=== PATIENT | female | born 1960 | race Caucasian/White ===

== ENCOUNTER 2019-04-14 22:44 | Emergency (ER) | payer OTHER, SELFPAY ==
[2019-04-14 23:25] LABS: APPEARANCE,URINE Clear (CLEAR); BILIRUBIN,URINE Negative (NEGATIVE); COLOR,URINE Yellow (YELLOW); GLUCOSE, URINE (UA) Negative (NEGATIVE); KETONES,URINE Trace mg/dL (NEGATIVE); LEUKOCYTE ESTERASE ,URINE Small (NEGATIVE); NITRATE,URINE Negative (NEGATIVE); OCCULT BLOOD,URINE Trace (NEGATIVE); PROTEIN,URINE POS 1+ mg/dL (NEGATIVE)
[2019-04-14 23:29] LABS: BASOPHILS % (AUTO) 0.3 % (0.0-5.0); EOSINOPHILS % (AUTO) 0.9 % (0.0-8.0); HEMATOCRIT 42.2 % (36-48); LYMPHOCYTES % (AUTO) 22.7 % (21.0-51.0); MEAN CORPUSCULAR HEMOGLOBIN 30.5 pg (27.0-33.0); MEAN CORPUSCULAR HGB CONC 32.9 g/dL (32.0-36.0); MEAN CORPUSCULAR VOLUME 92.7 fL (79-99); MONOCYTES % (AUTO) 6.6 % (3.0-13.0); NEUTROPHILS % (AUTO) 69.3 % (40.0-77.0); PLATELET COUNT (AUTO) 232 K/uL (130-400); RED BLOOD CELL COUNT(AUTO) 4.55 MIL/uL (4.00-5.50); WHITE BLOOD COUNT (AUTO) 6.5 K/uL (4.8-10.8)
[2019-04-14 23:38] LABS: CREATININE 0.9 mg/dL (0.5-1.5); POTASSIUM 3.6 mmol/L (3.5-5.1)
[2019-04-14 23:42] LABS: ALBUMIN 3.8 g/dL (3.5-5.0); BILIRUBIN,TOTAL 0.5 mg/dL (0.2-1.0); TOTAL PROTEIN, SERUM 8.1 g/dL (6.0-8.3)
[2019-04-14 23:50] LABS: INR 0.95 (0.85-1.15); PARTIAL THROMBOPLASTIN TIME 26.8 SEC (26.3-35.5)
[2019-04-14 23:59] LABS: WBC,URINE 0-1 /HPF (0-1)
[2019-04-15] LABS: BACTERIA,URINE Moderate /HPF (None Seen)
== END 2019-04-15 01:49 | disposition home or self-care (01) ==
LOC: EDH 22:44
DX: R59.9 Enlarged lymph nodes, unspecified (principal); R91.8 Other nonspecific abnormal finding of lung field; F41.9 Anxiety disorder, unspecified
CPT/HCPCS: 36415; 71045; 71250; 74176; 76536; 80053; 81001; 82150; 83690; 85025; 85610; 85730

== ENCOUNTER → 2019-04-21 | Outpatient (CLI) | payer OTHER ==
[2019-04-21 09:40] LABS: INR 0.98 (0.85-1.15); PARTIAL THROMBOPLASTIN TIME 27.4 SEC (26.3-35.5); PROTHROMBIN TIME 10.3 SEC (9.6-11.6)
--- NOTE | 2019-04-21 10:45 | NUR ---
US GUIDED BIOPSY LEFT SUPRACLAVICULAR MASS PROCEDURE PERFORMED BY DR. BUTLER. PUNCTURE SITE LEFT SIDE OF NECK. PATIENT TOLERATED PROCEDURE WELL. SPECIMEN X 7 COLLECTED. SENT TO LAB. END OF PROCEDURE AT 1055. BIOPSY NEEDLE REMOVED AND DRESSING APPLIED. NO BLEEDING NOTED. DISCHARGE INSTRUCTIONS GIVEN TO PATIENT AND VERBALIZED UNDERSTANDING. DISCHARGED AMBULATORY @ 1125. AAO X 3. NO C/O PAIN.
== END ==
LOC: RAH 08:54
PROVIDERS: ATTEND Family Medicine
DX: R22.1 Localized swelling, mass and lump, neck (principal); C79.2 Secondary malignant neoplasm of skin; C34.90 Malignant neoplasm of unspecified part of unspecified bronchus or lung; Z79.01 Long term (current) use of anticoagulants
CPT/HCPCS: 20206; 36415; 76942; 85610; 85730; 88305; A4215

== ENCOUNTER 2019-06-15 08:03 | Day surgery (SDC) | payer OTHER ==
[~2019-06-15] VITALS: Ht 162.6 cm; Wt 53.4 kg
[2019-06-15] VITALS (9 sets, daily range): BP systolic 82–105; BP diastolic 35–49
[2019-06-15] MEDS ORDERED: SODIUM CHLORIDE 0.9% 1000ML 1,000 ML IV ONE ×2 (08:23→11:17)
--- NOTE | 2019-06-15 08:30 | NUR ---
PREOP PT ARRIVED AMBULATORY IN NO DISTRESS. PT MADE COMFORTABLE IN ROOM, CALL LIGHT WITH IN REACH AND BED IN LOWEST POSITION. PT HERE FOR PORT PLACEMENT. PT HAS VEIN TRACKING TO LEFT ARM DUE TO CHEMO INFUSION. PT ALSO HAS A SMALL BRUISE TO LEFT ARM. LEFT BREATH SOUNDS COARSE TO LEFT LOWER LOBE.
[2019-06-15 08:37] LABS: BASOPHILS % (AUTO) 0.4 % (0.0-5.0); EOSINOPHILS % (AUTO) 0.7 % (0.0-8.0); HEMATOCRIT 37.3 % (36-48); LYMPHOCYTES % (AUTO) 26.5 % (21.0-51.0); MEAN CORPUSCULAR HEMOGLOBIN 29.8 pg (27.0-33.0); MEAN CORPUSCULAR HGB CONC 32.4 g/dL (32.0-36.0); MEAN CORPUSCULAR VOLUME 91.9 fL (79-99); MONOCYTES % (AUTO) 0.9 % (3.0-13.0); NEUTROPHILS % (AUTO) 71.3 % (40.0-77.0); PLATELET COUNT (AUTO) 469 K/uL (130-400); RED BLOOD CELL COUNT(AUTO) 4.06 MIL/uL (4.00-5.50); RED CELL DISTRIBUTION WIDTH 14.1 % (11.0-15.5); WHITE BLOOD COUNT (AUTO) 4.5 K/uL (4.8-10.8)
[2019-06-15 08:55] LABS: INR 0.92 (0.85-1.15); PARTIAL THROMBOPLASTIN TIME 25.2 SEC (26.3-35.5)
--- NOTE | 2019-06-15 09:23 | NUR ---
notification called dr holman and reported low b/p. ok to give one liter of ns wide open before procedure. pt informed and ns left wide open
[2019-06-15 09:25] LABS: EOSINOPHILS % (MANUAL) 1 % (1-6); LYMPHOCYTES % (MANUAL) 22 % (22-44); MAN.DIFF COMMENT-IMPRESSION MANUAL DIFFERENTIAL; MONOCYTES % (MANUAL) 1 % (2-9); PLATELET MORPHOLOGY COMMENT SLIGHT INCREASED; REACTIVE LYMPHOCYTES 1 % (0-0); SEGMENTED NEUTROPHILS % 75 % (40-70)
--- NOTE | 2019-06-15 10:35 | NUR ---
HYDRATION NS STILL INFUSING WELL. PT SLEEPING COMFORTABLY. WILL CONTINUE TO MONITOR PT.
--- NOTE | 2019-06-15 11:15 | NUR ---
hydration liter of ns infused. pt tolerated it well and in no distress. pt assisted to restroom and back.
--- NOTE | 2019-06-15 11:42 | NUR ---
FOLLOW UP MARIO GONZALEZ RN DIRECTOR FOR LITHOGRAPHIC ARTIST REPORTED PT WILL BE TAKEN AT NOON PLANNED. PT AWARE AND IN NO DISTRESS
[2019-06-15] MEDS ORDERED: LIDOCAINE 1%-EPI 1:100,000 20 ML VIAL IJ ONE (11:53)
[2019-06-15] MEDS ORDERED: FENTANYL CITRATE PF 50 MCG/1 ML 2ML VIAL ONE (11:53)
[2019-06-15] MEDS ORDERED: LIDOCAINE HCL 1% MDV 50ML VIAL ONE (11:53)
[2019-06-15] MEDS ORDERED: MIDAZOLAM HCL 1 MG/ML 2ML VIAL ONE (11:53)
--- NOTE | 2019-06-15 12:00 | NUR ---
TRANSFER PT TAKEN TO WATER [employer]AXI OPERATOR VIA BED IN NO DISTRESS BY PAM PRESLEY RN
[2019-06-15] MEDS ORDERED: CEFAZOLIN SODIUM 1 GM VIAL ONE (12:46)
[2019-06-15] MEDS ORDERED: OCTYL 2-CYANOACRYLATE 1 EACH TP ONE (12:53)
--- NOTE | 2019-06-15 13:18 | NUR ---
REPORT RECEIVED REPORT FROM PAM PRESLEY RN POST PORTACATH PLACEMENT. MAY MAY BE DISCHARGED IN ONE HOUR IF STABLE PER MD.
--- NOTE | 2019-06-15 13:25 | NUR ---
POST PROCEDURE PT ARRIVED VIA STRETCHER IN NO DISTRESS. PT A/O X3, DRESSING TO RT CHEST WALL X2 GAUZES CLEAN AND DRY. CALL LIGHT WITH IN REACH AND BED IN LOWEST POSITION. WILL CONTINUE TO MONITOR
--- NOTE | 2019-06-15 14:30 | NUR ---
DISCHARGE PT TAKEN OUT VIA W/C BY MARIANN Noel RN. PT IN NO DISTRESS. SPOUSE HERE FOR PT AND DISCHARGE INSTRUCTIONS GIVEN TO HIM TOO. HE VOICED UNDERSTANDING
== END 2019-06-15 14:30 | disposition home or self-care (01) ==
LOC: DAH 08:03 → CLH 08:03
PROVIDERS: ATTEND Internal Medicine Hematology & Oncology
DX: Z51.11 Encounter for antineoplastic chemotherapy (principal); C34.32 Malignant neoplasm of lower lobe, left bronchus or lung; C78.7 Secondary malignant neoplasm of liver and intrahepatic bile duct; E78.2 Mixed hyperlipidemia; F41.9 Anxiety disorder, unspecified; Z79.01 Long term (current) use of anticoagulants
CPT/HCPCS: 36415; 36561; 77001; 85025; 85610; 85730; A4215; A4216; A4221; A4222; A4223 ×3; A4606; A4663; C1788; C1894; J0690; J1644 ×2; J2250; J3010; J3490 ×2; J7030 ×2; 96365; 96366; 99156; 99157

== ENCOUNTER 2019-12-12 09:00 | Emergency (ER) | payer OTHER ==
[2019-12-12] MEDS ORDERED: IOHEXOL 350 MG/ML 100ML INFUS..BTL IV ONE (09:45)
[2019-12-12 09:52] LABS: BASOPHILS % (AUTO) 0.5 % (0.0-5.0); EOSINOPHILS % (AUTO) 0.9 % (0.0-8.0); LYMPHOCYTES % (AUTO) 20.8 % (21.0-51.0); MEAN CORPUSCULAR HEMOGLOBIN 34.8 pg (27.0-33.0); MEAN CORPUSCULAR HGB CONC 32.7 g/dL (32.0-36.0); MEAN CORPUSCULAR VOLUME 106.3 fL (79-99); MONOCYTES % (AUTO) 8.7 % (3.0-13.0); NEUTROPHILS % (AUTO) 68.9 % (40.0-77.0); PLATELET COUNT (AUTO) 237 K/uL (130-400); RED BLOOD CELL COUNT(AUTO) 3.48 MIL/uL (4.00-5.50); RED CELL DISTRIBUTION WIDTH 13.1 % (11.0-15.5); WHITE BLOOD COUNT (AUTO) 4.4 K/uL (4.8-10.8)
[2019-12-12 10:00] LABS: CREATININE 1.2 mg/dL (0.5-1.5); POTASSIUM 3.9 mmol/L (3.5-5.1)
[2019-12-12 10:04] LABS: INR 0.97 (0.85-1.15); PARTIAL THROMBOPLASTIN TIME 26.3 SEC (26.3-35.5); PROTHROMBIN TIME 10.5 SEC (9.6-11.6)
[2019-12-12 10:05] LABS: ALBUMIN 4.2 g/dL (3.5-5.0); BILIRUBIN,TOTAL 0.4 mg/dL (0.2-1.0); TOTAL PROTEIN, SERUM 8.4 g/dL (6.0-8.3)
[2019-12-12 10:36] LABS: APPEARANCE,URINE Clear (CLEAR); BILIRUBIN,URINE Negative (NEGATIVE); COLOR,URINE Yellow (YELLOW); GLUCOSE, URINE (UA) Negative (NEGATIVE); KETONES,URINE Negative (NEGATIVE); LEUKOCYTE ESTERASE ,URINE Negative (NEGATIVE); NITRATE,URINE Negative (NEGATIVE); OCCULT BLOOD,URINE Negative (NEGATIVE); PROTEIN,URINE Negative (NEGATIVE); UROBILINOGEN,URINE 0.2 mg/dL (0.2-1.0)
[2019-12-12] MEDS ORDERED: SODIUM CHLORIDE 0.9% 1000ML 1,000 ML IV ONE (11:42)
[2019-12-12] MEDS ORDERED: AZITHROMYCIN 250 MG TABLET PO ONE (11:43)
== END 2019-12-12 12:17 | disposition home or self-care (01) ==
LOC: EDH 09:00
DX: J20.8 Acute bronchitis due to other specified organisms (principal); R06.00 Dyspnea, unspecified; Z20.828 Contact with and (suspected) exposure to other viral communicable diseases; C34.90 Malignant neoplasm of unspecified part of unspecified bronchus or lung; F41.9 Anxiety disorder, unspecified; Z87.891 Personal history of nicotine dependence; Z85.05 Personal history of malignant neoplasm of liver
CPT/HCPCS: 36415; 71275; 80053; 81003; 83605; 84145; 84484; 85025; 85610; 85730; 87040 ×2; 87077; 87088; 87186; 87426; 93005; 96360; 96361; 99285; J7030; Q9967; U0003

== ENCOUNTER 2020-02-18 08:39 | Emergency (ER) | payer OTHER ==
[2020-02-18] MEDS ORDERED: SOLU-MEDROL 125MG VIAL ONE (09:05)
[2020-02-18] MEDS ORDERED: IPRATROPIUM/ALBUTEROL SULFATE 3 ML SOLUTION IH ONE ×2 (09:15→10:11)
== END 2020-02-18 10:33 | disposition home or self-care (01) ==
LOC: EDH 08:39
DX: J44.1 Chronic obstructive pulmonary disease with (acute) exacerbation (principal); F41.9 Anxiety disorder, unspecified; E03.9 Hypothyroidism, unspecified
CPT/HCPCS: 71046; 94640; 96374; 99284; J2930

== ENCOUNTER → 2020-03-21 | Outpatient (CLI) | payer OTHER ==
[2020-03-21 12:29] LABS: BASOPHILS % (AUTO) 0.5 % (0.0-5.0); EOSINOPHILS % (AUTO) 1.1 % (0.0-8.0); MEAN CORPUSCULAR HEMOGLOBIN 30.8 pg (27.0-33.0); MEAN CORPUSCULAR HGB CONC 32.4 g/dL (32.0-36.0); MEAN CORPUSCULAR VOLUME 95.1 fL (79-99); MONOCYTES % (AUTO) 5.2 % (3.0-13.0); NEUTROPHILS % (AUTO) 82.8 % (40.0-77.0); PLATELET COUNT (AUTO) 359 K/uL (130-400); RED BLOOD CELL COUNT(AUTO) 3.89 MIL/uL (4.00-5.50); RED CELL DISTRIBUTION WIDTH 14.6 % (11.0-15.5); WHITE BLOOD COUNT (AUTO) 7.9 K/uL (4.8-10.8)
[2020-03-21 12:49] LABS: ALBUMIN 2.7 g/dL (3.5-5.0); BILIRUBIN,TOTAL 0.5 mg/dL (0.2-1.0); CREATININE 1.2 mg/dL (0.5-1.5); CRP QUANTITATIVE 61.8 mg/L (0.00-9.0); POTASSIUM 4.5 mmol/L (3.5-5.1); TOTAL PROTEIN, SERUM 7.4 g/dL (6.0-8.3)
[2020-03-21 14:11] LABS: ERYTHROCYTE SEDIMENTATION RATE 95 MM/HR (0-30)
== END | disposition home or self-care (01) ==
LOC: LAB 11:21
PROVIDERS: ATTEND Family Medicine
DX: J90 Pleural effusion, not elsewhere classified (principal); R78.81 Bacteremia; R00.0 Tachycardia, unspecified
CPT/HCPCS: 36415; 80053; 85025; 85651; 86038; 86140; 86215; 86235; 86431; 87040

== ENCOUNTER → 2020-04-06 | Outpatient (CLI) | payer OTHER ==
[~2020-04-06] MED LIST: ALBU0.63 IH; ALBU18HF7 IH; ASCO500T20 PO; CLON1TAB12 PO; FLUT1BLS3 IH; FOLI1 PO; FURO20TA6 PO; LEVO112C4 PO; MELA10TA2 PO; METO10TA41 PO; METO25TA6 PO; MV-M1TAB20 PO; OPDIVO; VITA40TA PO; YERVOY; [UNRECOGNIZED DRUG - OTHER]
== END | disposition home or self-care (01) ==
LOC: CANPRESDC → DAH 10:00 → EDSTATUS 04-13 07:35
PROVIDERS: ATTEND Internal Medicine Gastroenterology
DX: R13.10 Dysphagia, unspecified (principal); Z20.822 Contact with and (suspected) exposure to COVID-19
CPT/HCPCS: C9803; U0003

== ENCOUNTER 2020-04-10 12:01 | Inpatient (IN) | payer OTHER ==
[~2020-04-10] VITALS: Ht 162.6 cm; Wt 52.6 kg
[2020-04-10 12:30] LABS: BASOPHILS % (AUTO) 0.4 % (0.0-5.0); EOSINOPHILS % (AUTO) 1.4 % (0.0-8.0); HEMATOCRIT 39.5 % (36-48); LYMPHOCYTES % (AUTO) 7.3 % (21.0-51.0); MEAN CORPUSCULAR HEMOGLOBIN 30.1 pg (27.0-33.0); MEAN CORPUSCULAR HGB CONC 32.4 g/dL (32.0-36.0); MEAN CORPUSCULAR VOLUME 92.9 fL (79-99); MONOCYTES % (AUTO) 5.4 % (3.0-13.0); NEUTROPHILS % (AUTO) 84.7 % (40.0-77.0); PLATELET COUNT (AUTO) 369 K/uL (130-400); RED BLOOD CELL COUNT(AUTO) 4.25 MIL/uL (4.00-5.50); RED CELL DISTRIBUTION WIDTH 14.8 % (11.0-15.5); WHITE BLOOD COUNT (AUTO) 11.5 K/uL (4.8-10.8)
[2020-04-10 12:44] LABS: INR 1.03 (0.85-1.15); PROTHROMBIN TIME 11.2 SEC (9.6-11.6)
[2020-04-10 12:45] LABS: PARTIAL THROMBOPLASTIN TIME 20.9 SEC (26.3-35.5)
[2020-04-10 12:51] LABS: CREATININE 0.9 mg/dL (0.5-1.5)
[2020-04-10 12:55] LABS: ALBUMIN 2.9 g/dL (3.5-5.0); BILIRUBIN,TOTAL 0.4 mg/dL (0.2-1.0)
[2020-04-10] MEDS ORDERED: 0.9%NACL 1000ML 1,000 ML IV SCH (14:15)
[2020-04-10] MEDS ORDERED: 0.9%NACL 1000ML 1,000 ML IV ONE (17:40)
[2020-04-10] MEDS: IPRATROPIUM/ALBUTEROL SULFATE 3 ML SOLUTION IH SCH ×5 (18:00→22:10)
[2020-04-10] MEDS ORDERED: BUDESONIDE 0.5 MG/2 ML INH IH ONE (18:24)
[2020-04-10] MEDS ORDERED: IBUPROFEN 100 MG/5 ML SUSP UDCUP ONE (18:35)
[2020-04-10 20:00] VITALS: BP 123/43
[2020-04-10] MEDS: BUDESONIDE 0.25 MG/2 ML INH IH SCH (20:02)
[2020-04-10] MEDS ORDERED: VITA40TA PO (22:00)
[2020-04-10] MEDS ORDERED: MELA10TA2 PO (22:00)
[2020-04-10] MEDS ORDERED: METO10TA41 PO (22:00)
[2020-04-10] MEDS ORDERED: ALBU18HF7 IH (22:00)
[2020-04-10] MEDS ORDERED: FOLI1 PO (22:00)
[2020-04-10] MEDS ORDERED: METO25TA6 PO (22:00)
[2020-04-10] MEDS ORDERED: FLUT1BLS3 IH (22:00)
[2020-04-10] MEDS ORDERED: LEVO112C4 PO (22:00)
[2020-04-10] MEDS ORDERED: ALBU0.63 IH (22:00)
[2020-04-10] MEDS ORDERED: ASCO500T20 PO (22:00)
[2020-04-10] MEDS ORDERED: YERVOY (22:00)
[2020-04-10] MEDS ORDERED: FURO20TA6 PO (22:00)
[2020-04-10] MEDS ORDERED: OPDIVO (22:00)
[2020-04-10] MEDS ORDERED: MV-M1TAB20 PO (22:00)
[2020-04-10] MEDS ORDERED: CLON1TAB12 PO (22:00)
[2020-04-10] MEDS ORDERED: [UNRECOGNIZED DRUG - OTHER] (22:00)
[2020-04-11] VITALS: BP 118/66
[2020-04-11] MEDS: IPRATROPIUM/ALBUTEROL SULFATE 3 ML SOLUTION IH SCH ×8 (02:00→22:03)
[2020-04-11 04:00] VITALS: BP 108/66
[2020-04-11] MEDS: BUDESONIDE 0.25 MG/2 ML INH IH SCH ×2 (06:00→18:45)
[2020-04-11] MEDS: METOCLOPRAMIDE 10 MG TABLET PO SCH ×4 (07:30→22:25)
[2020-04-11 07:57] VITALS: BP 108/64
[2020-04-11] MEDS: CLONAZEPAM 1MG TAB PO SCH ×2 (09:00→22:25)
[2020-04-11] MEDS ORDERED: VITAMIN K2 40 MCG PO SCH (09:00)
[2020-04-11] MEDS: FOLIC ACID 1 MG TABLET PO SCH (09:00)
[2020-04-11] MEDS: METOPROLOL TARTRATE 25 MG TAB PO SCH (09:00)
[2020-04-11] MEDS: ASCORBIC ACID 500 MG TAB PO SCH (09:00)
[2020-04-11] MEDS ORDERED: NON-FORMULARY MEDICATION 1 EACH (Mv-Mn/Iron/FA/Herbal Cmplx#190 (Vitamin D3 Complete Caple PO SCH (09:00)
[2020-04-11] MEDS ORDERED: NON-FORMULARY MEDICATION 1 EACH (Levothyroxine Sodium (Levothyroxine) 112 MCG) PO SCH (09:00)
[2020-04-11 11:21] VITALS: BP 100/69
[2020-04-11] MEDS ORDERED: MORPHINE 2 MG SYG ONE (12:56)
[2020-04-11 16:10] VITALS: BP 106/68
[2020-04-11] MEDS ORDERED: MELATONIN 20 MG PO SCH (21:00)
[2020-04-11] MEDS: MELATONIN 20MG PO SCH (22:26)
[2020-04-11] MEDS: ONDANSETRON 4MG INJ IVP PRN (23:49)
[2020-04-11] MEDS: MORPHINE 2 MG SYG IVP PRN (23:51)
[2020-04-12] VITALS (21 sets, daily range): BP systolic 82–101; BP diastolic 36–77
[2020-04-12] MEDS: METOCLOPRAMIDE 10 MG TABLET PO SCH ×4 (07:30→23:15)
[2020-04-12] MEDS: LEVOTHYROXINE 112 MCG TABLET PO SCH (07:38)
[2020-04-12] MEDS: IPRATROPIUM/ALBUTEROL SULFATE 3 ML SOLUTION IH SCH ×3 (07:54→22:31)
[2020-04-12] MEDS: MV MN PO SCH (09:00)
[2020-04-12] MEDS: IRON PO SCH (09:00)
[2020-04-12] MEDS: [UNRECOGNIZED DRUG - OTHER] PO SCH (09:00)
[2020-04-12] MEDS: HERBAL CMPLX PO SCH (09:00)
[2020-04-12] MEDS: VITAMIN K2 40 MCG PO SCH (09:00)
[2020-04-12] MEDS: METOPROLOL TARTRATE 25 MG TAB PO SCH (09:00)
[2020-04-12] MEDS ORDERED: SUCCINYLCHOLINE 200MG/10ML SYR ONE (09:34)
[2020-04-12] MEDS ORDERED: PROPOFOL 10 MG/ML 20ML VIAL IV ONE ×2 (09:34)
[2020-04-12] MEDS ORDERED: LIDOCAINE HCL 1% 20 ML VIAL ONE (09:34)
[2020-04-12] MEDS: FOLIC ACID 1 MG TABLET PO SCH (11:32)
[2020-04-12] MEDS: CLONAZEPAM 1MG TAB PO SCH ×2 (11:32→23:15)
[2020-04-12] MEDS: ASCORBIC ACID 500 MG TAB PO SCH (11:32)
[2020-04-12] MEDS: MORPHINE 2 MG SYG IVP PRN (11:33)
[2020-04-12] MEDS: BALSAM PERU/CASTOR OIL 60 GM TUBE TP SCH ×2 (17:41→23:15)
[2020-04-12] MEDS: BUDESONIDE 0.25 MG/2 ML INH IH SCH (18:00)
[2020-04-12] MEDS: MELATONIN 20MG PO SCH (21:00)
[2020-04-13] MEDS: IPRATROPIUM/ALBUTEROL SULFATE 3 ML SOLUTION IH SCH ×5 (02:36→22:28)
[2020-04-13 04:23] VITALS: BP 97/55
[2020-04-13] MEDS: LEVOTHYROXINE 112 MCG TABLET PO SCH (06:15)
[2020-04-13] MEDS: BUDESONIDE 0.25 MG/2 ML INH IH SCH ×2 (06:47→19:18)
[2020-04-13 07:30] VITALS: BP 94/32
[2020-04-13 07:37] LABS: HEMATOCRIT 33.4 % (36-48); MEAN CORPUSCULAR HEMOGLOBIN 29.4 pg (27.0-33.0); MEAN CORPUSCULAR HGB CONC 31.4 g/dL (32.0-36.0); MEAN CORPUSCULAR VOLUME 93.6 fL (79-99); PLATELET COUNT (AUTO) 327 K/uL (130-400); RED BLOOD CELL COUNT(AUTO) 3.57 MIL/uL (4.00-5.50); RED CELL DISTRIBUTION WIDTH 15.2 % (11.0-15.5); WHITE BLOOD COUNT (AUTO) 10.8 K/uL (4.8-10.8)
[2020-04-13 07:54] LABS: ALBUMIN 2.5 g/dL (3.5-5.0); BILIRUBIN,TOTAL 0.5 mg/dL (0.2-1.0); CREATININE 0.8 mg/dL (0.5-1.5); POTASSIUM 3.4 mmol/L (3.5-5.1); TOTAL PROTEIN, SERUM 6.6 g/dL (6.0-8.3)
[2020-04-13] MEDS: FOLIC ACID 1 MG TABLET PO SCH (08:08)
[2020-04-13] MEDS: METOCLOPRAMIDE 10 MG TABLET PO SCH ×4 (08:08→22:49)
[2020-04-13] MEDS: CLONAZEPAM 1MG TAB PO SCH ×2 (08:08→22:49)
[2020-04-13] MEDS: ASCORBIC ACID 500 MG TAB PO SCH (08:08)
[2020-04-13 08:11] LABS: EOSINOPHILS % (MANUAL) 1 % (1-6); LYMPHOCYTES % (MANUAL) 5 % (22-44); MONOCYTES % (MANUAL) 5 % (2-9); SEGMENTED NEUTROPHILS % 89 % (40-70)
[2020-04-13 08:12] LABS: MAN.DIFF COMMENT-IMPRESSION MANUAL DIFFERENTIAL; PLATELET MORPHOLOGY COMMENT ADEQUATE
[2020-04-13] MEDS: HERBAL CMPLX PO SCH (08:13)
[2020-04-13] MEDS: MV MN PO SCH (08:13)
[2020-04-13] MEDS: [UNRECOGNIZED DRUG - OTHER] PO SCH (08:13)
[2020-04-13] MEDS: IRON PO SCH (08:13)
[2020-04-13] MEDS: VITAMIN K2 40 MCG PO SCH (08:13)
[2020-04-13] MEDS: METOPROLOL TARTRATE 25 MG TAB PO SCH (09:00)
[2020-04-13] MEDS: HYDROCORTISONE 0.5% 30 GM OINT TP SCH ×3 (09:00→21:00)
[2020-04-13] MEDS: BALSAM PERU/CASTOR OIL 60 GM TUBE TP SCH ×3 (09:00→21:00)
[2020-04-13 11:00] VITALS: BP 98/54
[2020-04-13 16:00] VITALS: BP 97/52
[2020-04-13 20:26] VITALS: BP 107/66
[2020-04-13] MEDS: MELATONIN 20MG PO SCH (21:00)
[2020-04-13 23:46] VITALS: BP 111/63
[2020-04-14] MEDS: IPRATROPIUM/ALBUTEROL SULFATE 3 ML SOLUTION IH SCH ×5 (02:38→23:30)
[2020-04-14 03:46] VITALS: BP 107/58
[2020-04-14] MEDS: MORPHINE 2 MG SYG IVP PRN ×2 (04:31→20:55)
[2020-04-14] MEDS: ONDANSETRON 4MG INJ IVP PRN ×2 (04:32→21:11)
[2020-04-14 04:59] LABS: INR 1.03 (0.85-1.15); PROTHROMBIN TIME 11.2 SEC (9.6-11.6)
[2020-04-14] MEDS: BUDESONIDE 0.25 MG/2 ML INH IH SCH ×2 (06:21→19:01)
[2020-04-14] MEDS: LEVOTHYROXINE 112 MCG TABLET PO SCH (06:30)
[2020-04-14] MEDS: METOCLOPRAMIDE 10 MG TABLET PO SCH ×4 (07:30→20:56)
[2020-04-14 08:00] VITALS: BP 104/50
[2020-04-14] MEDS: IRON PO SCH (09:00)
[2020-04-14] MEDS: MV MN PO SCH (09:00)
[2020-04-14] MEDS: HYDROCORTISONE 0.5% 30 GM OINT TP SCH ×3 (09:00→21:00)
[2020-04-14] MEDS: ASCORBIC ACID 500 MG TAB PO SCH (09:00)
[2020-04-14] MEDS: METOPROLOL TARTRATE 25 MG TAB PO SCH (09:00)
[2020-04-14] MEDS: [UNRECOGNIZED DRUG - OTHER] PO SCH (09:00)
[2020-04-14] MEDS: FOLIC ACID 1 MG TABLET PO SCH (09:00)
[2020-04-14] MEDS: BALSAM PERU/CASTOR OIL 60 GM TUBE TP SCH ×3 (09:00→21:00)
[2020-04-14] MEDS: CLONAZEPAM 1MG TAB PO SCH ×2 (09:00→20:55)
[2020-04-14] MEDS: VITAMIN K2 40 MCG PO SCH (09:00)
[2020-04-14] MEDS: HERBAL CMPLX PO SCH (09:00)
[2020-04-14 16:00] VITALS: BP 96/56
[2020-04-14 19:00] VITALS: BP 104/62
[2020-04-14] MEDS: FUROSEMIDE 20 MG TABLET PO PRN (20:56)
[2020-04-14] MEDS: MELATONIN 20MG PO SCH (21:00)
[2020-04-15] VITALS (7 sets, daily range): BP systolic 92–141; BP diastolic 52–80
[2020-04-15] MEDS: BUDESONIDE 0.25 MG/2 ML INH IH SCH ×2 (06:13→19:07)
[2020-04-15] MEDS: METOCLOPRAMIDE 10 MG TABLET PO SCH ×4 (06:13→20:13)
[2020-04-15] MEDS: LEVOTHYROXINE 112 MCG TABLET PO SCH (06:13)
[2020-04-15] MEDS: IPRATROPIUM/ALBUTEROL SULFATE 3 ML SOLUTION IH SCH ×8 (06:25→21:46)
[2020-04-15] MEDS: CLONAZEPAM 1MG TAB PO SCH ×2 (07:59→20:13)
[2020-04-15] MEDS: METOPROLOL TARTRATE 25 MG TAB PO SCH (07:59)
[2020-04-15] MEDS: ASCORBIC ACID 500 MG TAB PO SCH (07:59)
[2020-04-15] MEDS: FOLIC ACID 1 MG TABLET PO SCH (07:59)
[2020-04-15] MEDS: VITAMIN K2 40 MCG PO SCH (08:05)
[2020-04-15] MEDS: HERBAL CMPLX PO SCH (08:05)
[2020-04-15] MEDS: [UNRECOGNIZED DRUG - OTHER] PO SCH (08:05)
[2020-04-15] MEDS: IRON PO SCH (08:05)
[2020-04-15] MEDS: MV MN PO SCH (08:05)
[2020-04-15] MEDS: HYDROCORTISONE 0.5% 30 GM OINT TP SCH ×3 (09:00→20:18)
[2020-04-15] MEDS: BALSAM PERU/CASTOR OIL 60 GM TUBE TP SCH ×3 (09:00→20:18)
[2020-04-15] MEDS: FUROSEMIDE 20 MG TABLET PO PRN (20:13)
[2020-04-15] MEDS: MELATONIN 20MG PO SCH (20:15)
[2020-04-15] MEDS: ONDANSETRON 4MG INJ IVP PRN (20:24)
[2020-04-15] MEDS: MORPHINE 2 MG SYG IVP PRN (20:25)
[2020-04-16] MEDS: IPRATROPIUM/ALBUTEROL SULFATE 3 ML SOLUTION IH SCH ×5 (02:43→22:24)
[2020-04-16 03:57] VITALS: BP 120/49
[2020-04-16] MEDS: BUDESONIDE 0.25 MG/2 ML INH IH SCH ×2 (06:57→18:48)
[2020-04-16 07:00] VITALS: BP 125/80
[2020-04-16] MEDS: HERBAL CMPLX PO SCH (09:00)
[2020-04-16] MEDS: IRON PO SCH (09:00)
[2020-04-16] MEDS: MV MN PO SCH (09:00)
[2020-04-16] MEDS: HYDROCORTISONE 0.5% 30 GM OINT TP SCH ×3 (09:00→21:00)
[2020-04-16] MEDS: VITAMIN K2 40 MCG PO SCH (09:00)
[2020-04-16] MEDS: [UNRECOGNIZED DRUG - OTHER] PO SCH (09:00)
[2020-04-16] MEDS: METOCLOPRAMIDE 10 MG TABLET PO SCH ×4 (09:44→21:08)
[2020-04-16] MEDS: ASCORBIC ACID 500 MG TAB PO SCH (09:44)
[2020-04-16] MEDS: LEVOTHYROXINE 112 MCG TABLET PO SCH (09:44)
[2020-04-16] MEDS: CLONAZEPAM 1MG TAB PO SCH ×2 (09:44→21:08)
[2020-04-16] MEDS: FOLIC ACID 1 MG TABLET PO SCH (09:44)
[2020-04-16] MEDS: METOPROLOL TARTRATE 25 MG TAB PO SCH (09:44)
[2020-04-16] MEDS: BALSAM PERU/CASTOR OIL 60 GM TUBE TP SCH ×3 (09:45→21:19)
[2020-04-16 11:00] VITALS: BP 108/59
[2020-04-16 16:00] VITALS: BP 115/72
[2020-04-16] MEDS: ONDANSETRON 4MG INJ IVP PRN ×2 (17:45→21:08)
[2020-04-16] MEDS ORDERED: IPRATROPIUM/ALBUTEROL SULFATE 3 ML SOLUTION IH SCH (18:00)
[2020-04-16] MEDS ORDERED: IPRATROPIUM/ALBUTEROL SULFATE 3 ML SOLUTION IH ONE (18:46)
[2020-04-16 19:10] VITALS: BP 125/75
[2020-04-16] MEDS: FUROSEMIDE 20 MG TABLET PO PRN (21:08)
[2020-04-16] MEDS: DEXAMETHASONE SOD PHOSPHATE 4 MG/ML 1ML VIAL IV SCH (21:08)
[2020-04-16] MEDS: MORPHINE 2 MG SYG IVP PRN (21:09)
[2020-04-16] MEDS: MELATONIN 20MG PO SCH (21:18)
[2020-04-16 23:24] VITALS: BP 98/67
[2020-04-17] VITALS (7 sets, daily range): BP systolic 98–115; BP diastolic 49–71
[2020-04-17] MEDS: IPRATROPIUM/ALBUTEROL SULFATE 3 ML SOLUTION IH SCH ×6 (03:33→23:41)
[2020-04-17] MEDS: BUDESONIDE 0.25 MG/2 ML INH IH SCH ×2 (06:00→18:54)
[2020-04-17] MEDS: LEVOTHYROXINE 112 MCG TABLET PO SCH (06:15)
[2020-04-17] MEDS: METOCLOPRAMIDE 10 MG TABLET PO SCH ×4 (06:15→21:15)
[2020-04-17] MEDS: DEXAMETHASONE SOD PHOSPHATE 4 MG/ML 1ML VIAL IV SCH ×3 (06:15→21:19)
[2020-04-17] MEDS: MORPHINE 2 MG SYG IVP PRN ×3 (06:16→21:16)
[2020-04-17] MEDS: ONDANSETRON 4MG INJ IVP PRN ×3 (06:16→21:42)
[2020-04-17] MEDS: [UNRECOGNIZED DRUG - OTHER] PO SCH (09:00)
[2020-04-17] MEDS: HYDROCORTISONE 0.5% 30 GM OINT TP SCH ×3 (09:00→21:19)
[2020-04-17] MEDS: IRON PO SCH (09:00)
[2020-04-17] MEDS: MV MN PO SCH (09:00)
[2020-04-17] MEDS: METOPROLOL TARTRATE 25 MG TAB PO SCH (09:00)
[2020-04-17] MEDS: VITAMIN K2 40 MCG PO SCH (09:00)
[2020-04-17] MEDS: BALSAM PERU/CASTOR OIL 60 GM TUBE TP SCH ×3 (09:00→21:17)
[2020-04-17] MEDS: HERBAL CMPLX PO SCH (09:00)
[2020-04-17] MEDS: ASCORBIC ACID 500 MG TAB PO SCH (09:23)
[2020-04-17] MEDS: FOLIC ACID 1 MG TABLET PO SCH (09:23)
[2020-04-17] MEDS: CLONAZEPAM 1MG TAB PO SCH ×2 (09:23→21:15)
[2020-04-17] MEDS: NYSTATIN 100000 UNIT/ML 5ML UDCUP PO SCH ×3 (13:11→21:15)
[2020-04-17] MEDS: MELATONIN 20MG PO SCH (21:19)
[2020-04-18 03:15] VITALS: BP 115/71
[2020-04-18] MEDS: DEXAMETHASONE SOD PHOSPHATE 4 MG/ML 1ML VIAL IV SCH ×3 (05:25→21:36)
[2020-04-18] MEDS: MORPHINE 2 MG SYG IVP PRN ×3 (05:26→23:21)
[2020-04-18] MEDS: LEVOTHYROXINE 112 MCG TABLET PO SCH (05:26)
[2020-04-18] MEDS: ONDANSETRON 4MG INJ IVP PRN ×3 (05:26→19:41)
[2020-04-18] MEDS: IPRATROPIUM/ALBUTEROL SULFATE 3 ML SOLUTION IH SCH ×3 (06:19→18:30)
[2020-04-18 08:00] VITALS: BP 104/50
[2020-04-18] MEDS: VITAMIN K2 40 MCG PO SCH (09:00)
[2020-04-18] MEDS: METOPROLOL TARTRATE 25 MG TAB PO SCH (09:00)
[2020-04-18] MEDS: NYSTATIN 100000 UNIT/ML 5ML UDCUP PO SCH ×4 (11:32→21:35)
[2020-04-18] MEDS: ASCORBIC ACID 500 MG TAB PO SCH (11:33)
[2020-04-18] MEDS: METOCLOPRAMIDE 10 MG TABLET PO SCH ×4 (11:33→21:36)
[2020-04-18] MEDS: FOLIC ACID 1 MG TABLET PO SCH (11:33)
[2020-04-18] MEDS: CLONAZEPAM 1MG TAB PO SCH ×2 (11:33→21:36)
[2020-04-18] MEDS: BALSAM PERU/CASTOR OIL 60 GM TUBE TP SCH ×3 (11:34→21:37)
[2020-04-18] MEDS: HYDROCORTISONE 0.5% 30 GM OINT TP SCH ×3 (11:34→21:36)
[2020-04-18] MEDS: HERBAL CMPLX PO SCH (11:38)
[2020-04-18] MEDS: IRON PO SCH (11:38)
[2020-04-18] MEDS: [UNRECOGNIZED DRUG - OTHER] PO SCH (11:38)
[2020-04-18] MEDS: MV MN PO SCH (11:38)
[2020-04-18 11:55] VITALS: BP 101/65
[2020-04-18 16:00] VITALS: BP 73/50
[2020-04-18] MEDS: BUDESONIDE 0.25 MG/2 ML INH IH SCH (18:52)
[2020-04-18 20:00] VITALS: BP 92/57
[2020-04-18] MEDS: MELATONIN 20MG PO SCH (21:36)
[2020-04-19] VITALS: BP 110/61
[2020-04-19] MEDS: IPRATROPIUM/ALBUTEROL SULFATE 3 ML SOLUTION IH SCH ×5 (01:41→23:27)
[2020-04-19] MEDS: MORPHINE 2 MG SYG IVP PRN ×3 (03:47→18:43)
[2020-04-19] MEDS: ONDANSETRON 4MG INJ IVP PRN ×2 (03:47→18:42)
[2020-04-19 04:36] LABS: INR 1.02 (0.85-1.15); PROTHROMBIN TIME 11.1 SEC (9.6-11.6)
[2020-04-19 05:20] VITALS: BP 95/48
[2020-04-19] MEDS: LEVOTHYROXINE 112 MCG TABLET PO SCH (05:53)
[2020-04-19] MEDS: DEXAMETHASONE SOD PHOSPHATE 4 MG/ML 1ML VIAL IV SCH ×3 (05:53→22:16)
[2020-04-19] MEDS: METOCLOPRAMIDE 10 MG TABLET PO SCH ×4 (07:30→22:17)
[2020-04-19 08:00] VITALS: BP 146/79
[2020-04-19] MEDS: VITAMIN K2 40 MCG PO SCH (09:00)
[2020-04-19] MEDS: METOPROLOL TARTRATE 25 MG TAB PO SCH (09:00)
[2020-04-19 12:00] VITALS: BP_SYST 120; BP_SYST 130; BP_DIAS 54; BP_DIAS 73
[2020-04-19] MEDS: CLONAZEPAM 1MG TAB PO SCH ×2 (12:36→22:17)
[2020-04-19] MEDS: IRON PO SCH (12:38)
[2020-04-19] MEDS: NYSTATIN 100000 UNIT/ML 5ML UDCUP PO SCH ×3 (12:38→22:18)
[2020-04-19] MEDS: [UNRECOGNIZED DRUG - OTHER] PO SCH (12:38)
[2020-04-19] MEDS: HERBAL CMPLX PO SCH (12:38)
[2020-04-19] MEDS: MV MN PO SCH (12:38)
[2020-04-19] MEDS: FOLIC ACID 1 MG TABLET PO SCH (12:38)
[2020-04-19] MEDS: ASCORBIC ACID 500 MG TAB PO SCH (12:38)
[2020-04-19] MEDS: BALSAM PERU/CASTOR OIL 60 GM TUBE TP SCH ×3 (12:52→22:17)
[2020-04-19] MEDS: HYDROCORTISONE 0.5% 30 GM OINT TP SCH ×3 (12:52→22:18)
[2020-04-19 16:00] VITALS: BP_SYST 121; BP_SYST 140; BP_DIAS 56; BP_DIAS 73
[2020-04-19] MEDS ORDERED: LIDOCAINE HCL-MPF 1% 2ML VIAL ONE ×2 (17:51→17:52)
[2020-04-19] MEDS ORDERED: LIDOCAINE HCL MPF 1% 5ML VIAL ONE (17:55)
[2020-04-19] MEDS: BUDESONIDE 0.25 MG/2 ML INH IH SCH (18:00)
[2020-04-19 20:00] VITALS: BP 111/62
[2020-04-19] MEDS: MELATONIN 20MG PO SCH (22:18)
[2020-04-20] VITALS: BP 99/56
[2020-04-20] MEDS: ONDANSETRON 4MG INJ IVP PRN ×2 (03:04→12:10)
[2020-04-20] MEDS: MORPHINE 2 MG SYG IVP PRN ×2 (03:05→12:10)
[2020-04-20 04:00] VITALS: BP 104/63
[2020-04-20] MEDS: LEVOTHYROXINE 112 MCG TABLET PO SCH (05:38)
[2020-04-20] MEDS: DEXAMETHASONE SOD PHOSPHATE 4 MG/ML 1ML VIAL IV SCH ×3 (05:38→21:18)
[2020-04-20] MEDS: IPRATROPIUM/ALBUTEROL SULFATE 3 ML SOLUTION IH SCH ×3 (06:40→20:16)
[2020-04-20] MEDS: BUDESONIDE 0.25 MG/2 ML INH IH SCH ×3 (06:40→20:16)
[2020-04-20 07:54] VITALS: BP 101/42
[2020-04-20] MEDS: METOCLOPRAMIDE 10 MG TABLET PO SCH ×4 (10:30→21:18)
[2020-04-20] MEDS: METOPROLOL TARTRATE 25 MG TAB PO SCH (10:30)
[2020-04-20] MEDS: CLONAZEPAM 1MG TAB PO SCH ×2 (10:30→21:18)
[2020-04-20] MEDS: ASCORBIC ACID 500 MG TAB PO SCH (10:30)
[2020-04-20] MEDS: NYSTATIN 100000 UNIT/ML 5ML UDCUP PO SCH ×4 (10:30→21:18)
[2020-04-20] MEDS: FOLIC ACID 1 MG TABLET PO SCH (10:30)
[2020-04-20] MEDS: BALSAM PERU/CASTOR OIL 60 GM TUBE TP SCH ×3 (10:31→21:19)
[2020-04-20] MEDS: IRON PO SCH (10:32)
[2020-04-20] MEDS: MV MN PO SCH (10:32)
[2020-04-20] MEDS: [UNRECOGNIZED DRUG - OTHER] PO SCH (10:32)
[2020-04-20] MEDS: HERBAL CMPLX PO SCH (10:32)
[2020-04-20] MEDS: VITAMIN K2 40 MCG PO SCH (10:32)
[2020-04-20] MEDS: HYDROCORTISONE 0.5% 30 GM OINT TP SCH ×3 (10:33→21:00)
[2020-04-20 11:40] VITALS: BP 101/54
[2020-04-20 16:00] VITALS: BP 104/59
[2020-04-20 19:49] VITALS: BP_SYST 104; BP_SYST 115; BP_DIAS 41; BP_DIAS 70
[2020-04-20] MEDS: MELATONIN 20MG PO SCH (21:00)
[2020-04-21] MEDS: IPRATROPIUM/ALBUTEROL SULFATE 3 ML SOLUTION IH SCH ×4 (00:17→23:47)
[2020-04-21 00:19] VITALS: BP 94/50
[2020-04-21] MEDS: ONDANSETRON 4MG INJ IVP PRN ×4 (00:36→22:11)
[2020-04-21] MEDS: MORPHINE 2 MG SYG IVP PRN ×4 (00:38→23:26)
[2020-04-21 04:35] VITALS: BP 113/71
[2020-04-21] MEDS: LEVOTHYROXINE 112 MCG TABLET PO SCH (06:39)
[2020-04-21] MEDS: DEXAMETHASONE SOD PHOSPHATE 4 MG/ML 1ML VIAL IV SCH ×3 (06:39→22:05)
[2020-04-21] MEDS: METOCLOPRAMIDE 10 MG TABLET PO SCH ×4 (06:39→20:37)
[2020-04-21 08:00] VITALS: BP 102/52
[2020-04-21] MEDS: HERBAL CMPLX PO SCH (09:00)
[2020-04-21] MEDS: VITAMIN K2 40 MCG PO SCH (09:00)
[2020-04-21] MEDS: HYDROCORTISONE 0.5% 30 GM OINT TP SCH ×3 (09:00→20:37)
[2020-04-21] MEDS: BALSAM PERU/CASTOR OIL 60 GM TUBE TP SCH ×3 (09:00→20:38)
[2020-04-21] MEDS: MV MN PO SCH (09:00)
[2020-04-21] MEDS: IRON PO SCH (09:00)
[2020-04-21] MEDS: [UNRECOGNIZED DRUG - OTHER] PO SCH (09:00)
[2020-04-21] MEDS: BUDESONIDE 0.25 MG/2 ML INH IH SCH ×2 (09:00→19:16)
[2020-04-21 12:00] VITALS: BP 99/45
[2020-04-21] MEDS ORDERED: SODIUM BICARB 50MEQ 50ML VIAL 50 ML ONE (12:19)
[2020-04-21] MEDS ORDERED: FENTANYL CITRATE PF 50 MCG/1 ML 2ML VIAL ONE (12:19)
[2020-04-21] MEDS ORDERED: LIDOCAINE HCL 400MG/20ML VIAL ONE (12:19)
[2020-04-21] MEDS ORDERED: MIDAZOLAM HCL 1 MG/ML 2ML VIAL ONE (12:19)
[2020-04-21] MEDS ORDERED: IODIXANOL 320 MG/ML 100 ML VIAL ONE (12:21)
[2020-04-21] MEDS: ASCORBIC ACID 500 MG TAB PO SCH (15:44)
[2020-04-21] MEDS: FOLIC ACID 1 MG TABLET PO SCH (15:45)
[2020-04-21] MEDS: CLONAZEPAM 1MG TAB PO SCH ×2 (15:45→20:35)
[2020-04-21] MEDS: METOPROLOL TARTRATE 25 MG TAB PO SCH (15:45)
[2020-04-21] MEDS: NYSTATIN 100000 UNIT/ML 5ML UDCUP PO SCH ×4 (15:46→20:35)
[2020-04-21 16:00] VITALS: BP 110/58
[2020-04-21 20:32] VITALS: BP 107/62
[2020-04-21] MEDS: MELATONIN 20MG PO SCH (20:37)
[2020-04-22 00:18] VITALS: BP 93/51
[2020-04-22 05:09] VITALS: BP 106/51
[2020-04-22 05:16] LABS: BASOPHILS % (AUTO) 0.1 % (0.0-5.0); HEMATOCRIT 37.1 % (36-48); LYMPHOCYTES % (AUTO) 2.7 % (21.0-51.0); MEAN CORPUSCULAR HEMOGLOBIN 29.6 pg (27.0-33.0); MEAN CORPUSCULAR VOLUME 95.6 fL (79-99); MONOCYTES % (AUTO) 3.8 % (3.0-13.0); NEUTROPHILS % (AUTO) 92.7 % (40.0-77.0); PLATELET COUNT (AUTO) 327 K/uL (130-400); RED BLOOD CELL COUNT(AUTO) 3.88 MIL/uL (4.00-5.50); RED CELL DISTRIBUTION WIDTH 15.8 % (11.0-15.5); WHITE BLOOD COUNT (AUTO) 12.9 K/uL (4.8-10.8)
[2020-04-22 05:39] LABS: ALBUMIN 2.3 g/dL (3.5-5.0); BILIRUBIN,TOTAL 0.5 mg/dL (0.2-1.0); POTASSIUM 4.6 mmol/L (3.5-5.1); TOTAL PROTEIN, SERUM 6.4 g/dL (6.0-8.3)
[2020-04-22] MEDS: METOCLOPRAMIDE 10 MG TABLET PO SCH ×4 (06:13→21:14)
[2020-04-22] MEDS: LEVOTHYROXINE 112 MCG TABLET PO SCH (06:13)
[2020-04-22] MEDS: DEXAMETHASONE SOD PHOSPHATE 4 MG/ML 1ML VIAL IV SCH ×3 (06:13→21:14)
[2020-04-22] MEDS: IPRATROPIUM/ALBUTEROL SULFATE 3 ML SOLUTION IH SCH ×3 (07:12→18:17)
[2020-04-22] MEDS: BUDESONIDE 0.25 MG/2 ML INH IH SCH ×2 (07:12→18:17)
[2020-04-22] MEDS: HYDROCORTISONE 0.5% 30 GM OINT TP SCH ×2 (07:50→21:26)
[2020-04-22] MEDS ORDERED: MORPHINE 2 MG SYG ONE (08:11)
[2020-04-22 08:19] VITALS: BP 107/47
[2020-04-22] MEDS ORDERED: BENZOCAINE/LANOLIN/ALOE VERA 60 ML AEROSOL TP PRN (09:00)
[2020-04-22] MEDS: BALSAM PERU/CASTOR OIL 60 GM TUBE TP SCH ×3 (09:00→21:25)
[2020-04-22] MEDS: ASCORBIC ACID 500 MG TAB PO SCH (09:20)
[2020-04-22] MEDS: FOLIC ACID 1 MG TABLET PO SCH (09:20)
[2020-04-22] MEDS: METOPROLOL TARTRATE 25 MG TAB PO SCH (09:21)
[2020-04-22] MEDS: NYSTATIN 100000 UNIT/ML 5ML UDCUP PO SCH ×4 (09:21→21:14)
[2020-04-22] MEDS: ONDANSETRON 4MG INJ IVP PRN ×2 (09:21→21:15)
[2020-04-22] MEDS: CLONAZEPAM 1MG TAB PO SCH ×2 (09:21→21:15)
[2020-04-22] MEDS: MV MN PO SCH (09:23)
[2020-04-22] MEDS: VITAMIN K2 40 MCG PO SCH (09:23)
[2020-04-22] MEDS: IRON PO SCH (09:23)
[2020-04-22] MEDS: [UNRECOGNIZED DRUG - OTHER] PO SCH (09:23)
[2020-04-22] MEDS: HERBAL CMPLX PO SCH (09:23)
[2020-04-22 12:16] VITALS: BP 103/57
[2020-04-22 15:59] VITALS: BP 98/47
[2020-04-22] MEDS: MORPHINE 2 MG SYG IVP PRN ×2 (16:06→21:22)
[2020-04-22 20:00] VITALS: BP 104/57
[2020-04-22] MEDS: LACTULOSE 20 GM/30 ML UDCUP PO SCH (21:14)
[2020-04-22] MEDS: MELATONIN 20MG PO SCH (21:26)
[2020-04-22] MEDS: DOCUSATE CALCIUM 240 MG CAP PO SCH (21:57)
[2020-04-23] VITALS: BP 100/58
[2020-04-23] MEDS: IPRATROPIUM/ALBUTEROL SULFATE 3 ML SOLUTION IH SCH ×4 (00:46→18:19)
[2020-04-23] MEDS: ONDANSETRON 4MG INJ IVP PRN ×2 (03:26→12:07)
[2020-04-23] MEDS: MORPHINE 2 MG SYG IVP PRN ×4 (03:27→20:20)
[2020-04-23 04:00] VITALS: BP 104/48
[2020-04-23] MEDS: METOCLOPRAMIDE 10 MG TABLET PO SCH ×4 (06:11→20:24)
[2020-04-23] MEDS: LEVOTHYROXINE 112 MCG TABLET PO SCH (06:11)
[2020-04-23] MEDS: DEXAMETHASONE SOD PHOSPHATE 4 MG/ML 1ML VIAL IV SCH ×2 (06:11→14:00)
[2020-04-23] MEDS: BUDESONIDE 0.25 MG/2 ML INH IH SCH ×2 (06:40→18:19)
[2020-04-23 08:00] VITALS: BP 111/68
[2020-04-23] MEDS: NYSTATIN 100000 UNIT/ML 5ML UDCUP PO SCH ×4 (08:56→20:21)
[2020-04-23] MEDS: CLONAZEPAM 1MG TAB PO SCH ×2 (08:56→20:21)
[2020-04-23] MEDS: VITAMIN K2 40 MCG PO SCH (08:56)
[2020-04-23] MEDS: HERBAL CMPLX PO SCH (08:56)
[2020-04-23] MEDS: MV MN PO SCH (08:56)
[2020-04-23] MEDS: IRON PO SCH (08:56)
[2020-04-23] MEDS: LACTULOSE 20 GM/30 ML UDCUP PO SCH ×2 (08:56→20:21)
[2020-04-23] MEDS: FOLIC ACID 1 MG TABLET PO SCH (08:56)
[2020-04-23] MEDS: METOPROLOL TARTRATE 25 MG TAB PO SCH (08:56)
[2020-04-23] MEDS: [UNRECOGNIZED DRUG - OTHER] PO SCH (08:56)
[2020-04-23] MEDS: BALSAM PERU/CASTOR OIL 60 GM TUBE TP SCH ×3 (08:56→21:00)
[2020-04-23] MEDS: DOCUSATE CALCIUM 240 MG CAP PO SCH ×2 (09:00→20:21)
[2020-04-23] MEDS: HYDROCORTISONE 0.5% 30 GM OINT TP SCH (09:00)
[2020-04-23] MEDS: ASCORBIC ACID 500 MG TAB PO SCH (09:44)
[2020-04-23 12:03] VITALS: BP 110/66
[2020-04-23] MEDS: HYDROCORTISONE 1% CREAM 28G TP SCH ×2 (14:00→20:44)
[2020-04-23] MEDS ORDERED: PHARMACY COMMUNICATION MISC SCH (15:45)
[2020-04-23 16:00] VITALS: BP 106/64
[2020-04-23] MEDS ORDERED: MAG/AL/SIMETH 30 ML+LIDO2% VISC+DIPHEN 75MG 30ML PO PRN ×3 (16:15)
[2020-04-23] MEDS ORDERED: COMPOUND PO MISCELLANEOUS 1 EACH MISC MISC PRN (16:15)
[2020-04-23] MEDS: MAG/AL/SIMETH 30 ML+LIDO2% VISC+DIPHEN 75MG 30ML PO PRN ×6 (17:18→20:22)
[2020-04-23 19:53] VITALS: BP 128/66
[2020-04-23] MEDS: MAG/AL/SIMETH 30 ML+LIDO2% VISC+DIPHEN 75MG 30ML PO SCH ×3 (20:43)
[2020-04-23] MEDS: MELATONIN 20MG PO SCH (20:44)
[2020-04-24] MEDS: IPRATROPIUM/ALBUTEROL SULFATE 3 ML SOLUTION IH SCH ×4 (00:14→19:13)
[2020-04-24 00:16] VITALS: BP 107/53
[2020-04-24] MEDS: MORPHINE 2 MG SYG IVP PRN ×4 (00:36→20:48)
[2020-04-24 04:00] VITALS: BP 104/47
[2020-04-24] MEDS: BUDESONIDE 0.25 MG/2 ML INH IH SCH (06:00)
[2020-04-24] MEDS: LEVOTHYROXINE 112 MCG TABLET PO SCH (06:22)
[2020-04-24] MEDS: METOCLOPRAMIDE 10 MG TABLET PO SCH ×4 (06:22→20:47)
[2020-04-24 07:57] VITALS: BP 110/60
[2020-04-24] MEDS: LACTULOSE 20 GM/30 ML UDCUP PO SCH ×3 (09:00→21:00)
[2020-04-24] MEDS: DOCUSATE CALCIUM 240 MG CAP PO SCH ×3 (10:34→21:00)
[2020-04-24] MEDS: ASCORBIC ACID 500 MG TAB PO SCH (10:34)
[2020-04-24] MEDS: CLONAZEPAM 1MG TAB PO SCH ×2 (10:35→20:47)
[2020-04-24] MEDS: NYSTATIN 100000 UNIT/ML 5ML UDCUP PO SCH ×4 (10:35→20:47)
[2020-04-24] MEDS: METOPROLOL TARTRATE 25 MG TAB PO SCH (10:35)
[2020-04-24] MEDS: FOLIC ACID 1 MG TABLET PO SCH (10:35)
[2020-04-24] MEDS: IRON PO SCH (10:36)
[2020-04-24] MEDS: [UNRECOGNIZED DRUG - OTHER] PO SCH (10:36)
[2020-04-24] MEDS: HERBAL CMPLX PO SCH (10:36)
[2020-04-24] MEDS: VITAMIN K2 40 MCG PO SCH (10:36)
[2020-04-24] MEDS: MV MN PO SCH (10:36)
[2020-04-24] MEDS: BALSAM PERU/CASTOR OIL 60 GM TUBE TP SCH ×3 (10:37→21:00)
[2020-04-24] MEDS: HYDROCORTISONE 1% CREAM 28G TP SCH ×3 (10:37→21:00)
[2020-04-24] MEDS: MAG/AL/SIMETH 30 ML+LIDO2% VISC+DIPHEN 75MG 30ML PO SCH ×6 (10:39→20:55)
[2020-04-24] MEDS: ONDANSETRON 4MG INJ IVP PRN ×2 (10:43→22:09)
[2020-04-24 11:32] VITALS: BP 113/43
[2020-04-24 16:00] VITALS: BP 109/38
[2020-04-24 16:48] LABS: HEMATOCRIT 35.6 % (36-48); MEAN CORPUSCULAR HEMOGLOBIN 29.8 pg (27.0-33.0); MEAN CORPUSCULAR HGB CONC 31.7 g/dL (32.0-36.0); MEAN CORPUSCULAR VOLUME 93.9 fL (79-99); PLATELET COUNT (AUTO) 263 K/uL (130-400); RED BLOOD CELL COUNT(AUTO) 3.79 MIL/uL (4.00-5.50); RED CELL DISTRIBUTION WIDTH 15.7 % (11.0-15.5); WHITE BLOOD COUNT (AUTO) 12.8 K/uL (4.8-10.8)
[2020-04-24 16:58] LABS: CREATININE 0.7 mg/dL (0.5-1.5)
[2020-04-24 17:02] LABS: ALBUMIN 2.1 g/dL (3.5-5.0); BILIRUBIN,TOTAL 0.4 mg/dL (0.2-1.0); TOTAL PROTEIN, SERUM 5.8 g/dL (6.0-8.3)
[2020-04-24 17:09] LABS: BAND NEUTROPHILS % (MANUAL) 2 % (0-2); LYMPHOCYTES % (MANUAL) 9 % (22-44); MAN.DIFF COMMENT-IMPRESSION MANUAL DIFFERENTIAL; MONOCYTES % (MANUAL) 5 % (2-9); REACTIVE LYMPHOCYTES 2 % (0-0); SEGMENTED NEUTROPHILS % 82 % (40-70)
[2020-04-24 17:12] LABS: PLATELET MORPHOLOGY COMMENT PLT CLUMPS PRESENT
[2020-04-24 19:00] VITALS: BP 104/60
[2020-04-24] MEDS: MAG/AL/SIMETH 30 ML+LIDO2% VISC+DIPHEN 75MG 30ML PO PRN ×3 (20:53)
[2020-04-24] MEDS: MELATONIN 20MG PO SCH (20:55)
[2020-04-25] VITALS (7 sets, daily range): BP systolic 98–111; BP diastolic 53–68
[2020-04-25] MEDS: IPRATROPIUM/ALBUTEROL SULFATE 3 ML SOLUTION IH SCH ×4 (01:26→23:54)
[2020-04-25] MEDS: MORPHINE 2 MG SYG IVP PRN ×4 (01:46→20:29)
[2020-04-25] MEDS: METOCLOPRAMIDE 10 MG TABLET PO SCH ×4 (06:18→20:14)
[2020-04-25] MEDS: LEVOTHYROXINE 112 MCG TABLET PO SCH (06:18)
[2020-04-25] MEDS: BUDESONIDE 0.25 MG/2 ML INH IH SCH ×2 (06:26→19:20)
[2020-04-25] MEDS: ONDANSETRON 4MG INJ IVP PRN ×2 (06:38→20:29)
[2020-04-25] MEDS: MV MN PO SCH (09:00)
[2020-04-25] MEDS: [UNRECOGNIZED DRUG - OTHER] PO SCH (09:00)
[2020-04-25] MEDS: METOPROLOL TARTRATE 25 MG TAB PO SCH (09:00)
[2020-04-25] MEDS: DOCUSATE CALCIUM 240 MG CAP PO SCH ×2 (09:00→20:14)
[2020-04-25] MEDS: HERBAL CMPLX PO SCH (09:00)
[2020-04-25] MEDS: LACTULOSE 20 GM/30 ML UDCUP PO SCH ×2 (09:00→20:14)
[2020-04-25] MEDS: IRON PO SCH (09:00)
[2020-04-25] MEDS: HYDROCORTISONE 1% CREAM 28G TP SCH ×3 (09:00→20:19)
[2020-04-25] MEDS: VITAMIN K2 40 MCG PO SCH (09:00)
[2020-04-25] MEDS: CLONAZEPAM 1MG TAB PO SCH ×2 (09:54→20:14)
[2020-04-25] MEDS: FOLIC ACID 1 MG TABLET PO SCH (09:55)
[2020-04-25] MEDS: NYSTATIN 100000 UNIT/ML 5ML UDCUP PO SCH ×4 (09:56→20:14)
[2020-04-25] MEDS: ASCORBIC ACID 500 MG TAB PO SCH (09:57)
[2020-04-25] MEDS: BALSAM PERU/CASTOR OIL 60 GM TUBE TP SCH ×3 (09:57→20:19)
[2020-04-25] MEDS: MAG/AL/SIMETH 30 ML+LIDO2% VISC+DIPHEN 75MG 30ML PO PRN ×6 (10:01→20:17)
[2020-04-25] MEDS: MAG/AL/SIMETH 30 ML+LIDO2% VISC+DIPHEN 75MG 30ML PO SCH ×6 (10:01→20:18)
[2020-04-25] MEDS: MELATONIN 20MG PO SCH (20:16)
[2020-04-26] MEDS: MORPHINE 2 MG SYG IVP PRN ×4 (00:34→23:37)
[2020-04-26] MEDS: ONDANSETRON 4MG INJ IVP PRN ×4 (00:34→23:36)
[2020-04-26] MEDS: METOCLOPRAMIDE 10 MG TABLET PO SCH ×4 (05:42→20:55)
[2020-04-26] MEDS: LEVOTHYROXINE 112 MCG TABLET PO SCH (05:42)
[2020-04-26 06:12] VITALS: BP 109/78
[2020-04-26] MEDS: IPRATROPIUM/ALBUTEROL SULFATE 3 ML SOLUTION IH SCH ×3 (06:31→18:50)
[2020-04-26] MEDS: BUDESONIDE 0.25 MG/2 ML INH IH SCH ×2 (06:31→18:51)
[2020-04-26 07:38] VITALS: BP 103/55
[2020-04-26] MEDS: LACTULOSE 20 GM/30 ML UDCUP PO SCH ×2 (09:00→21:00)
[2020-04-26] MEDS: METOPROLOL TARTRATE 25 MG TAB PO SCH (09:00)
[2020-04-26] MEDS: HYDROCORTISONE 1% CREAM 28G TP SCH ×3 (09:00→21:02)
[2020-04-26] MEDS: DOCUSATE CALCIUM 240 MG CAP PO SCH ×2 (09:00→20:55)
[2020-04-26] MEDS: CLONAZEPAM 1MG TAB PO SCH ×2 (10:33→20:55)
[2020-04-26] MEDS: FOLIC ACID 1 MG TABLET PO SCH (10:33)
[2020-04-26] MEDS: ASCORBIC ACID 500 MG TAB PO SCH (10:34)
[2020-04-26] MEDS: NYSTATIN 100000 UNIT/ML 5ML UDCUP PO SCH ×3 (10:37→21:12)
[2020-04-26] MEDS: MV MN PO SCH (10:41)
[2020-04-26] MEDS: [UNRECOGNIZED DRUG - OTHER] PO SCH (10:41)
[2020-04-26] MEDS: IRON PO SCH (10:41)
[2020-04-26] MEDS: HERBAL CMPLX PO SCH (10:41)
[2020-04-26] MEDS: VITAMIN K2 40 MCG PO SCH (10:41)
[2020-04-26] MEDS: MAG/AL/SIMETH 30 ML+LIDO2% VISC+DIPHEN 75MG 30ML PO SCH ×6 (10:42→21:09)
[2020-04-26] MEDS: BALSAM PERU/CASTOR OIL 60 GM TUBE TP SCH ×3 (10:53→21:02)
[2020-04-26 11:25] VITALS: BP 101/30
[2020-04-26 15:53] VITALS: BP 96/56
[2020-04-26] MEDS: MELATONIN 20MG PO SCH (21:00)
[2020-04-27] MEDS: IPRATROPIUM/ALBUTEROL SULFATE 3 ML SOLUTION IH SCH ×2 (00:15→06:47)
[2020-04-27 00:49] VITALS: BP 105/61
[2020-04-27] MEDS: MORPHINE 2 MG SYG IVP PRN (04:40)
[2020-04-27] MEDS: ONDANSETRON 4MG INJ IVP PRN (04:40)
[2020-04-27 04:49] VITALS: BP 106/40
[2020-04-27] MEDS: LEVOTHYROXINE 112 MCG TABLET PO SCH (05:20)
[2020-04-27] MEDS: BUDESONIDE 0.25 MG/2 ML INH IH SCH (06:47)
[2020-04-27] MEDS: METOPROLOL TARTRATE 25 MG TAB PO SCH (07:29)
[2020-04-27 07:30] VITALS: BP 114/69
[2020-04-27] MEDS: LACTULOSE 20 GM/30 ML UDCUP PO SCH (07:33)
[2020-04-27] MEDS: CLONAZEPAM 1MG TAB PO SCH (07:34)
[2020-04-27] MEDS: METOCLOPRAMIDE 10 MG TABLET PO SCH (07:34)
[2020-04-27] MEDS: ASCORBIC ACID 500 MG TAB PO SCH (07:34)
[2020-04-27] MEDS: FOLIC ACID 1 MG TABLET PO SCH (07:34)
[2020-04-27] MEDS: MAG/AL/SIMETH 30 ML+LIDO2% VISC+DIPHEN 75MG 30ML PO SCH ×3 (07:43)
[2020-04-27] MEDS: BALSAM PERU/CASTOR OIL 60 GM TUBE TP SCH (07:44)
[2020-04-27] MEDS: VITAMIN K2 40 MCG PO SCH (07:44)
[2020-04-27] MEDS: MV MN PO SCH (07:44)
[2020-04-27] MEDS: [UNRECOGNIZED DRUG - OTHER] PO SCH (07:44)
[2020-04-27] MEDS: HYDROCORTISONE 1% CREAM 28G TP SCH (07:44)
[2020-04-27] MEDS: IRON PO SCH (07:44)
[2020-04-27] MEDS: HERBAL CMPLX PO SCH (07:44)
[2020-04-27] MEDS: DOCUSATE CALCIUM 240 MG CAP PO SCH (07:44)
[2020-04-27] MEDS: NYSTATIN 100000 UNIT/ML 5ML UDCUP PO SCH (07:44)
== END 2020-04-27 12:26 | disposition home health service (06) | DRG 871 ==
LOC: EDH 12:01 → EDHIP 13:00 → 3CH 19:41 → 4DH 04-11 20:53
PROVIDERS: ADMIT Internal Medicine Hematology & Oncology; ATTEND Internal Medicine Hematology & Oncology
PROC: 0W9B3ZZ Drainage of Left Pleural Cavity, Percutaneous Approach (ICD-10-PCS; 2020-04-11)
PROC: 0DB58ZX Excision of Esophagus, Via Natural or Artificial Opening Endoscopic, Diagnostic (ICD-10-PCS; 2020-04-12)
PROC: 0DB68ZX Excision of Stomach, Via Natural or Artificial Opening Endoscopic, Diagnostic (ICD-10-PCS; 2020-04-12)
PROC: 0W9B3ZZ Drainage of Left Pleural Cavity, Percutaneous Approach (ICD-10-PCS; 2020-04-14)
PROC: 5A09357 Assistance with Respiratory Ventilation, Less than 24 Consecutive Hours, Continuous Positive Airway Pressure (ICD-10-PCS; 2020-04-17)
PROC: 0W9B30Z Drainage of Left Pleural Cavity with Drainage Device, Percutaneous Approach (ICD-10-PCS; principal; 2020-04-19)
PROC: 0W9B3ZZ Drainage of Left Pleural Cavity, Percutaneous Approach (ICD-10-PCS; 2020-04-27)
DX: A40.9 Streptococcal sepsis, unspecified (principal); J96.21 Acute and chronic respiratory failure with hypoxia; C34.90 Malignant neoplasm of unspecified part of unspecified bronchus or lung; J91.0 Malignant pleural effusion; I31.3 Pericardial effusion (noninflammatory); J44.1 Chronic obstructive pulmonary disease with (acute) exacerbation; C79.9 Secondary malignant neoplasm of unspecified site; J98.19 Other pulmonary collapse; C34.92 Malignant neoplasm of unspecified part of left bronchus or lung; L89.152 Pressure ulcer of sacral region, stage 2; K31.89 Other diseases of stomach and duodenum; R13.10 Dysphagia, unspecified; F41.9 Anxiety disorder, unspecified; E03.9 Hypothyroidism, unspecified; K22.2 Esophageal obstruction; Z87.891 Personal history of nicotine dependence
CPT/HCPCS: 32550; 32555; 36415; 43239; 43249; 71045; 71250; 75989; 80053; 82948; 83605; 83735; 84145; 85025; 85610; 85730; 87040; 87071; 87077; 87186; 87205; 92610; 94640; 94664; 94760; 97039; 99156; 99157; 99291; A4606; C1729; G0378; J0330; J1100; J1644; J2250; J2405; J2704; J3010; J3490; J7030; Q9967